=== PATIENT | female | born 1940 | race Caucasian/White ===

== ENCOUNTER 2020-01-29 12:54 | Emergency (ER) | payer MEDICARE, OTHER ==
[2020-01-29] MEDS ORDERED: Hydromorphone 1 mg/ml Ampule IV ONE (13:19)
[2020-01-29] MEDS ORDERED: Hydromorphone 1 mg/ml Ampule ONE (13:21)
[2020-01-29 13:47] LABS: INR 1.25 (0.8-3.0); PROTIME 14.1 SECONDS (9.95-12.35)
[2020-01-29 13:54] LABS: ALBUMIN 3.5 g/dL (3.5-5.0); ALKALINE PHOSPHATASE 80 U/L (38-126); ANION GAP 13.3 MEQ/L (5-15); BLOOD UREA NITROGEN 13 mg/dL (7-17); CHLORIDE 96 mmol/L (98-107); Calcium 8.3 mg/dL (8.4-10.2); Carbon Dioxide 27 mmol/L (22-30); Creatinine 1 0.43 mg/dL (0.52-1.04); EST GLOMERULAR FILTRATION RATE > 60.0 ML/MIN; Glucose 192 mg/dL (74-106); Potassium 3.7 mmol/L (3.5-5.1); SGOT/AST 35 U/L (14-36); SGPT/ALT 15 U/L (0-35); SODIUM 132 mmol/L (137-145); Total Protein 6.7 g/dL (6.3-8.2)
--- NOTE | 2020-01-29 13:55 | ERPHSYRPT ---
- History of Present Illness Time Seen by Provider: 01/29/20 13:00 Source: patient, EMS Exam Limitations: clinical condition (Patient seems to be slightly demented) Patient Subjective Stated Complaint: Pt states "I found out I was covid positive this morning and I was walking and fell over backwards. I did not lose consciousness, but my left hip really hurts." Triage Nursing Assessment: Pt presened alert and oriented X 3, skin pwd Pt able to speak in clear full sentences pt in no apparent respiratory distress. Pt left leg shortened and rotated outward with deformity to distal femoral region. Physician History: Paulie is a COVID +79-year-old female who was on the phone this morning became weak and fell no apparent loss of consciousness she was standing talking on the phone. She complains of pain in the left hip and thigh this occurred just prior to arrival and she arrived by ambulance with full PPE. Occurred: just prior to arrival Reason for Fall: fell from standing pos Injuries/Pain Location: lower extremity Loss of Consciousness: no loss of consciousness Quality: throbbing Severity of Pain-Max: severe Severity of Pain-Current: moderate Modifying Factors: Improves With: movement Associated Symptoms (Fall): lightheadedness Allergies/Adverse Reactions: Penicillins Allergy (Mild, Verified 01/29/20 13:28) Hives Home Medications: Ergocalciferol (Vitamin D2) [Vitamin D2] 1 cap PO BID 01/29/20 [History] Ergocalciferol (Vitamin D2) [Vitamin D2] 1 cap PO DAILY 01/29/20 [History] Metformin HCl 500 mg PO BID 01/29/20 [History] Omeprazole 20 mg PO DAILY 01/29/20 [History] Sitagliptin Phosphate [Januvia] 50 mg PO DAILY 01/29/20 [History] Hx Tetanus, Diphtheria Vaccination/Date Given: No Hx Influenza Vaccination/Date Given: Yes Hx Pneumococcal Vaccination/Date Given: No Immunizations Up to Date: Yes Travel Risk - International Travel Have you traveled outside of the country in past 3 weeks: No - Coronavirus Screening Are you exhibiting any of the following symptoms?: Yes Symptoms: Fever, Cough: New Onset, Shortness of Breath, Vomiting/Diarrhea, Loss of Taste or Smell, Headaches/Body Aches/Fatigue Close contact with a COVID-19 positive Pt in past 14-21 Days: Yes - Review of Systems Constitutional: No Fever, No Chills Eyes: No Symptoms Ears, Nose, & Throat: No Symptoms Respiratory: No Cough, No Dyspnea Cardiac: No Chest Pain, No Edema, No Syncope Abdominal/Gastrointestinal: No Abdominal Pain, No Nausea, No Vomiting, No Diarrhea Genitourinary Symptoms: No Dysuria Musculoskeletal: Deformity, Joint Pain, Joint Swelling, No Back Pain, No Neck Pain Skin: No Rash Neurological: No Dizziness, No Focal Weakness, No Sensory Changes Psychological: No Symptoms Endocrine: No Symptoms All Other Systems: Reviewed and Negative - Past Medical History Pertinent Past Medical History: Yes Neurological History: No Pertinent History ENT History: Macular Degeneration Cardiac History: No Pertinent History Respiratory History: No Pertinent History Endocrine Medical History: Diabetes Type II Musculoskeletal History: Arthritis GI Medical History: GERD History: No Pertinent History Psycho-Social History: No Pertinent History Female Reproductive Disorders: No Pertinent History - Past Surgical History Past Surgical History: Yes Other Surgical History: hip right. back. cysts from right breast - Social History Smoking Status: Never smoker Exposure to second hand smoke: No Drug Use: none Patient Lives Alone: No - Nursing Vital Signs Nursing Vital Signs: Initial Vital Signs Temperature 100.0 F 01/29/20 12:56 Pulse Rate 100 H 01/29/20 12:56 Respiratory Rate 22 01/29/20 12:56 Blood Pressure 168/81 01/29/20 12:56 O2 Sat by Pulse Oximetry 96 01/29/20 12:56 Pain Scale Pain Intensity 2 - Ramses Coma Score Best Eye Response ([place]): (4) open spontaneously Best Verbal Response ([place]): (5) oriented Best Motor Response ([place]): (6) obeys commands [place] Total: 15 - Physical Exam General Appearance: moderate distress, alert Head Injury: no evidence of injury Eye Exam: PERRL/EOMI ENT Exam: airway nml Neck Exam: normal inspection, No tenderness Respiratory/Chest Exam: normal breath sounds, No chest tenderness, No respiratory distress Cardiovascular Exam: normal heart sounds, regular rate/rhythm Gastrointestinal Exam: soft, No tenderness, No distention, No guarding, No ecchymosis Back Exam: normal inspection, No vertebral tenderness Extremity Exam: deformities (Left hip area and proximal femur), limited range of motion, evidence of injury, pain with movement Peripheral Pulses: dorsalis-pedis (R): 2+, dorsalis-pedis (L): 2+ Neurologic Exam: alert, oriented x 3, cooperative, sensation nml, No motor deficits Skin Exam: normal color, warm, dry SpO2 Interpretation: normal SpO2: 96 O2 Delivery: Room Air - Course Nursing assessment & vital signs reviewed: Yes EKG Interpreted by Me: RATE (90), Sinus Rhythm, NORMAL AXIS, NORMAL INTERVALS, Non-specific ST Changes - Radiology Exams Hip X-ray Interpretation: Reviewed by me, Other (X-ray shows a intertrochanteric fracture of the left hip with comminution to include the left lesser trochanter) Chest X-ray Interpretation: Reviewed by me (Chest x-ray reviewed by me shows left lower lobe pneumonia) Ordered Tests: Active Orders 24 hr Category Date Time Status EKG-ER Only STAT Care 01/29/20 13:09 Active CHEST 1 VIEW (PORTABLE) Stat Exams 01/29/20 13:07 Taken FEMUR Stat Exams 01/29/20 13:07 Completed HIP UNI (2V) INCL PEL IF DONE Stat Exams 01/29/20 13:07 Completed CBC W DIFF Stat Lab 01/29/20 13:20 Completed CMP Stat Lab 01/29/20 13:20 Completed PROTIME WITH INR Stat Lab 01/29/20 13:20 Completed TROPONIN Q3H Lab 01/29/20 13:20 Completed TROPONIN Q3H Lab 01/29/20 16:15 Ordered TROPONIN Q3H Lab 01/29/20 19:15 Ordered TROPONIN Q3H Lab 01/29/20 22:15 Ordered TROPONIN Q3H Lab 01/30/20 01:15 Ordered Medication Summary Discontinued Medications Generic Name Dose Route Start Last Admin Trade Name Freq PRN Reason Stop Dose Admin Hydromorphone HCl 1 mg 01/29/20 13:19 01/29/20 13:23 Hydromorphone 1 Mg/Ml Ampule IV 01/29/20 13:20 1 mg STAT ONE Administration Hydromorphone HCl Confirm 01/29/20 13:21 Hydromorphone 1 Mg/Ml Ampule Administered 01/29/20 13:22 Dose 1 mg .ROUTE [facility] ONE Lab/Rad Data: Laboratory Result Diagrams 01/29/20 13:20 01/29/20 13:20 Laboratory Results 01/29/20 01/29/20 01/29/20 Range/Units 13:20 13:20 13:20 WBC (4.0-10.5) K/mm3 RBC (4.1-5.4) M/mm3 Hgb (12.0-16.0) gm/dl Hct (35-47) % MCV (78-100) fl MCH (26-32) pg MCHC (32-36) g/dl RDW (11.5-14.0) % Plt Count (150-450) K/mm3 MPV (7.5-11.0) fl Gran % (36.0-66.0) % Eos # (Auto) (0-0.5) Absolute Lymphs (auto) (1.0-4.6) Absolute Monos (auto) (0.0-1.3) Lymphocytes % (24.0-44.0) % Monocytes % (0.0-12.0) % Eosinophils % (0.00-5.0) % Basophils % (0.0-0.4) % Absolute Granulocytes (1.4-6.9) Basophils # (0-0.4) PT 14.1 H (9.95-12.35) SECONDS INR 1.25 (0.8-3.0) Sodium 132 L (137-145) mmol/L Potassium 3.7 (3.5-5.1) mmol/L Chloride 96 L (98-107) mmol/L Carbon Dioxide 27 (22-30) mmol/L Anion Gap 13.3 (5-15) MEQ/L BUN 13 (7-17) mg/dL Creatinine 0.43 L (0.52-1.04) mg/dL Estimated GFR > 60.0 ML/MIN Glucose 192 H (74-106) mg/dL Calcium 8.3 L (8.4-10.2) mg/dL Total Bilirubin 0.60 (0.2-1.3) mg/dL AST 35 (14-36) U/L ALT 15 (0-35) U/L Alkaline Phosphatase 80 (38-126) U/L Troponin I 0.014 (0.000-0.034) ng/mL Serum Total Protein 6.7 (6.3-8.2) g/dL Albumin 3.5 (3.5-5.0) g/dL 01/29/20 Range/Units 13:20 WBC 6.1 (4.0-10.5) K/mm3 RBC 3.86 L (4.1-5.4) M/mm3 Hgb 11.9 L (12.0-16.0) gm/dl Hct 35.9 (35-47) % MCV 93.0 (78-100) fl MCH 30.8 (26-32) pg MCHC 33.1 (32-36) g/dl RDW 13.8 (11.5-14.0) % Plt Count 177 (150-450) K/mm3 MPV 11.6 H (7.5-11.0) fl Gran % 85.1 H (36.0-66.0) % Eos # (Auto) 0 (0-0.5) Absolute Lymphs (auto) 0.58 L (1.0-4.6) Absolute Monos (auto) 0.32 (0.0-1.3) Lymphocytes % 9.5 L (24.0-44.0) % Monocytes % 5.2 (0.0-12.0) % Eosinophils % 0.0 (0.00-5.0) % Basophils % 0.2 (0.0-0.4) % Absolute Granulocytes 5.20 (1.4-6.9) Basophils # 0.01 (0-0.4) PT (9.95-12.35) SECONDS INR (0.8-3.0) Sodium (137-145) mmol/L Potassium (3.5-5.1) mmol/L Chloride (98-107) mmol/L Carbon Dioxide (22-30) mmol/L Anion Gap (5-15) MEQ/L BUN (7-17) mg/dL Creatinine (0.52-1.04) mg/dL Estimated GFR ML/MIN Glucose (74-106) mg/dL Calcium (8.4-10.2) mg/dL Total Bilirubin (0.2-1.3) mg/dL AST (14-36) U/L ALT (0-35) U/L Alkaline Phosphatase (38-126) U/L Troponin I (0.000-0.034) ng/mL Serum Total Protein (6.3-8.2) g/dL Albumin (3.5-5.0) g/dL - Progress Progress: unchanged - Departure Departure Disposition: Transfer (Patient was accepted in transfer by Dr. Mercedes at [facility] transfer was necessitated because of no orthopedic coverage here at this facility. Were informed that she is COVID positive) Clinical Impression: Intertrochanteric fracture of left hip, Lab test positive for detection of COVID-19 virus Condition: Serious Critical Care Time: No Referrals: DOCTOR,NO FAMILY [Primary Care Provider] -
[2020-01-29 14:08] LABS: BASOPHIL % 0.2 % (0.0-0.4); Basophil (Absolute #) 0.01 (0-0.4); Eosinophil (Absolute #) 0 (0-0.5); Hematocrit 35.9 % (35-47); Hemoglobin 11.9 gm/dl (12.0-16.0); Lymphocyte (Absolute #) 0.58 (1.0-4.6); Lymphocytes % 9.5 % (24.0-44.0); Mean Corpuscular Hemoglobin 30.8 pg (26-32); Mean Corpuscular Hgb Concent. 33.1 g/dl (32-36); Mean Platelet Volume 11.6 fl (7.5-11.0); Monocyte (Absolute #) 0.32 (0.0-1.3); Monocytes % 5.2 % (0.0-12.0); Neutrophil % 85.1 % (36.0-66.0); Platelet Count 177 K/mm3 (150-450); Red Blood Count 3.86 M/mm3 (4.1-5.4); Red Cell Distribution Width 13.8 % (11.5-14.0); White Blood Count 6.1 K/mm3 (4.0-10.5)
--- NOTE | 2020-01-29 14:12 | XRAY ---
Indication: Pain following fall. Comparison: None 2 view left hip demonstrates minimally displaced intertrochanteric fracture with mildly displaced lesser trochanter fracture fragment. Elsewhere osteopenia, lower lumbar degenerative spondylosis, and urinary bladder catheter in situ.
--- NOTE | 2020-01-29 14:15 | XRAY ---
Indication: Pain following fall. Comparison: None 2 view left femur demonstrates minimally displaced intertrochanteric fracture. Elsewhere osteopenia, lower lumbar degenerative spondylosis, scattered vascular calcifications, and urinary bladder catheter in situ.
--- NOTE | 2020-01-29 14:17 | XRAY ---
Indication: Pain following fall. Comparison: None Portable chest hyperinflated with patchy right mid to upper lung airspace disease, left midlung subsegmental atelectasis/scarring, and left base calcified granuloma. Heart is not enlarged with small left infrahilar calcified nodes. Bony thorax intact with mild osteopenia and degenerative changes. Impression: Right mid to upper lung airspace disease. COPD and old granulomatous disease.
[2020-01-29 16:30] LABS: Slide Review 1 YES
[2020-01-29 16:31] VITALS: BP 180/78; PULSE 92; O2SAT 97
== END 2020-01-29 16:35 | disposition short-term general hospital (02) ==
LOC: ED 12:54 → MERGE 12:54 → ED 16:35
DX: S72.142A Displaced intertrochanteric fracture of left femur, initial encounter for closed fracture (principal); U07.1 COVID-19; E11.9 Type 2 diabetes mellitus without complications
CPT/HCPCS: 36415; 71045; 73502; 73552; 80053; 84484; 85025; 85610; 93005; 96374; 99285; J1170

== ENCOUNTER 2020-04-26 09:41 | Emergency (ER) | payer MEDICARE, OTHER ==
[2020-04-26 09:54] VITALS: O2SAT 99
--- NOTE | 2020-04-26 09:56 | ERPHSYRPT ---
- History of Present Illness Time Seen by Provider: 04/26/20 09:50 Patient Subjective Stated Complaint: pt here for fall, she states she fell in bathroom this morning. no co pain to right hand Triage Nursing Assessment: pt alert, resp easy, skin w/d/p. face mask in place, she has sweling and bruising to right hand Physician History: 80 years old female presented in the ER with chief complaint of right hand pain and swelling after she fell in the bathroom this morning. Patient reports she has issues with her legs which gave away and it happened while she was in the bathroom earlier and tried to catch her by stretching her hand. Did not hit her head, no loss of consciousness. She is complaining of mild dull aching pain which is more with palpation. No difficulty movements of fingers, no numbness tingling or weakness of fingers. Intact movements at wrist. No injury anywhere else. Occurred: this morning Method of Injury: fell Quality: constant, aching Severity of Pain-Max: mild Severity of Pain-Current: mild Extremities Pain Location: hand: right Modifying Factors: Improves With: immobilization, rest. Worsens With: movement Associated Symptoms: none Allergies/Adverse Reactions: Penicillins Allergy (Mild, Verified 04/26/20 09:54) Hives Home Medications: Ergocalciferol (Vitamin D2) [Vitamin D2] 1 cap PO BID 01/29/20 [History] Ergocalciferol (Vitamin D2) [Vitamin D2] 1 cap PO DAILY 01/29/20 [History] Metformin HCl 500 mg PO BID 01/29/20 [History] Omeprazole 20 mg PO DAILY 01/29/20 [History] Sitagliptin Phosphate [Januvia] 50 mg PO DAILY 01/29/20 [History] Hx Tetanus, Diphtheria Vaccination/Date Given: No Hx Influenza Vaccination/Date Given: Yes Hx Pneumococcal Vaccination/Date Given: Yes Immunizations Up to Date: Yes Travel Risk - International Travel Have you traveled outside of the country in past 3 weeks: No - Coronavirus Screening Are you exhibiting any of the following symptoms?: No Close contact with a COVID-19 positive Pt in past 14-21 Days: No - Review of Systems Constitutional: No Symptoms Eyes: Photophobia Ears, Nose, & Throat: No Symptoms Respiratory: No Symptoms Cardiac: No Symptoms Abdominal/Gastrointestinal: No Symptoms Genitourinary Symptoms: No Symptoms Musculoskeletal: Fall, Injury, Joint Pain, Myalgias Skin: No Symptoms Neurological: No Symptoms Psychological: No Symptoms Endocrine: No Symptoms Hematologic/Lymphatic: No Symptoms Immunological/Allergic: No Symptoms - Past Medical History Pertinent Past Medical History: Yes Neurological History: No Pertinent History ENT History: Macular Degeneration Cardiac History: No Pertinent History Respiratory History: No Pertinent History Endocrine Medical History: Diabetes Type II Musculoskeletal History: Arthritis GI Medical History: GERD History: No Pertinent History Psycho-Social History: No Pertinent History Female Reproductive Disorders: No Pertinent History - Past Surgical History Past Surgical History: Yes Other Surgical History: hip right. back. cysts from right breast - Social History Smoking Status: Never smoker Exposure to second hand smoke: No Drug Use: none Patient Lives Alone: No - Female History Hx Last Menstrual Period: psoy Hx Now: No - Nursing Vital Signs Nursing Vital Signs: Initial Vital Signs Temperature 97.6 F 04/26/20 09:53 Pulse Rate 103 H 04/26/20 09:53 Respiratory Rate 18 04/26/20 09:53 Blood Pressure 172/74 04/26/20 09:53 O2 Sat by Pulse Oximetry 99 04/26/20 09:53 Pain Scale Pain Intensity 6 - Physical Exam General Appearance: no apparent distress, alert Eyes, Ears, Nose, Throat Exam: normal ENT inspection, TMs normal, pharynx normal Neck Exam: normal inspection, non-tender, supple, full range of motion Cardiovascular/Respiratory Exam: chest non-tender, normal breath sounds Abdominal Exam: non-tender, soft Back Exam: normal inspection Shoulder Exam: normal inspection, non-tender Elbow/Forearm Exam: normal inspection, non-tender Wrist Exam: normal inspection, non-tender, no evidence of injury, normal ROM Hand Exam: normal ROM, bone tenderness (Fifth metacarpal right hand with swelling/hematoma/tenderness.), soft tissue tenderness, swelling Neuro/Tendon Exam: normal sensation, normal motor functions Mental Status Exam: alert, oriented x 3, cooperative Skin Exam: normal color SpO2 Interpretation: normal SpO2: 99 O2 Delivery: Room Air - Course Nursing assessment & vital signs reviewed: Yes Ordered Tests: Active Orders 24 hr Category Date Time Status Sling Application STAT Care 04/26/20 11:13 Active Splint STAT Care 04/26/20 11:04 Active HAND (MINIMUM 3 VIEWS) Stat Exams 04/26/20 10:21 Completed - Progress Progress: unchanged Progress Note: 04/26/20 10:58 Has fracture of shaft of fifth metacarpal. Ulnar splint is applied. Outpatient follow-up with Ortho clinic. Recommended Tylenol to use as needed, ice and elevation. Counseled pt/family regarding: diagnosis, need for follow-up, rad results - Departure Departure Disposition: Home Clinical Impression: Fracture, metacarpal shaft Qualifiers: Encounter type: initial encounter Metacarpal bone: fifth Fracture type: closed Fracture alignment: nondisplaced Laterality: right Qualified Code(s): S62.356A - Nondisplaced fracture of shaft of fifth metacarpal bone, right hand, initial encounter for closed fracture Condition: Stable Critical Care Time: No Referrals: CORRINE MCGOWAN DO [Primary Care Provider] - Follow Up with PCP/3 days MEENU ECHEVERRIA NP [NON-STAFF PHY W/O PRIVILEGES] - Follow Up with PCP/3 days Instructions: Hand Fracture (DC) Additional Instructions: Take Tylenol as needed for pain. Keep it elevated, apply ice intermittently. Follow-up with Ortho clinic for reevaluation. Return to ER for any worsening.
--- NOTE | 2020-04-26 10:46 | XRAY ---
Indication: Pain and swelling following fall. Comparison: None 3 view right hand demonstrates minimally displaced oblique fracture shaft 5th metacarpal with mild soft tissue swelling. Elsewhere osteopenia and minimal/mild degenerative changes all IP/1st MCP joints. No other bony, articular, or soft tissue abnormalities.
[2020-04-26 11:13] VITALS: BP 174/80; PULSE 88
== END 2020-04-26 11:14 | disposition home or self-care (01) ==
LOC: ED 09:41
DX: S62.356A Nondisplaced fracture of shaft of fifth metacarpal bone, right hand, initial encounter for closed fracture (principal); W01.0XXA Fall on same level from slipping, tripping and stumbling without subsequent striking against object, initial encounter
CPT/HCPCS: 29126; 73130; 99284

== ENCOUNTER 2021-06-23 14:53 | Observation (INO) | payer MEDICARE, OTHER ==
[2021-06-23] MEDS ORDERED: Ativan 2 MG/1 ML VIAL IV PRN (15:28)
[2021-06-23 16:11] LABS: Hematocrit 36.4 % (35-47); Hemoglobin 11.6 gm/dl (12.0-16.0); Mean Cell Volume 94.1 fl (78-100); Mean Corpuscular Hgb Concent. 31.9 g/dl (32-36); Mean Platelet Volume 12.2 fl (7.5-11.0); Platelet Count 234 K/mm3 (150-450); Red Blood Count 3.87 M/mm3 (4.1-5.4); Red Cell Distribution Width 13.3 % (11.5-14.0); White Blood Count 6.5 K/mm3 (4.0-10.5)
[2021-06-23 16:24] LABS: ALBUMIN 3.8 g/dL (3.5-5.0); ALKALINE PHOSPHATASE 103 U/L (38-126); ANION GAP 13.3 MEQ/L (5-15); BLOOD UREA NITROGEN 14 mg/dL (7-17); CHLORIDE 96 mmol/L (98-107); Calcium 9.2 mg/dL (8.4-10.2); Carbon Dioxide 29 mmol/L (22-30); Creatinine 1 0.37 mg/dL (0.52-1.04); EST GLOMERULAR FILTRATION RATE > 60.0 ML/MIN; Glucose 171 mg/dL (74-106); Potassium 3.8 mmol/L (3.5-5.1); SGOT/AST 23 U/L (14-36); SGPT/ALT 17 U/L (0-35); SODIUM 135 mmol/L (137-145); Total Protein 6.5 g/dL (6.3-8.2)
[2021-06-23 17:01] LABS: INFLUENZA A NEGATIVE (NEGATIVE); INFLUENZA B NEGATIVE (NEGATIVE); RESPIRATORY SYNCTIAL VIRUS NEGATIVE (Negative)
[2021-06-23 17:28] LABS: SARS-CoV-2 Xpert Express POSITIVE (NEGATIVE)
[2021-06-23 18:06] LABS: Appearance SLIGHTLY CLOUDY (CLEAR); Bacteria MODERATE /HPF (NEGATIVE); Bilirubin NEGATIVE (NEGATIVE); Blood NEGATIVE Ery/ul (0-5); Epithelial Cells RARE /HPF (FEW); Glucose 50 mg/dL (NEGATIVE); Ketones NEGATIVE (NEGATIVE); Leukocyte Esterase LARGE (NEGATIVE); Mucus SLIGHT /HPF (NEGATIVE); Nitrite POSITIVE (NEGATIVE); Protein,Urine Dip NEGATIVE (Negative); Specific Gravity 1.015 (1.005-1.025); Urobilinogen NEGATIVE mg/dL (0-1); WBC 51-100 /HPF (0-5)
[2021-06-23] MEDS: ROCEPHIN 1 Gm-D5w 50 ml Bag** 1 G/50 ML IVPB IV SCH (18:53)
[2021-06-23] MEDS: Lactated Ringers 1,000 ML IV SCH (18:53)
[2021-06-23] MEDS ORDERED: TYLENOL EXTRA STRENGTH 500 MG PO PRN (19:58)
[2021-06-23] MEDS: Ocuvite Tablet PO SCH (22:36)
[2021-06-23] MEDS: Zocor 10MG PO SCH (22:36)
[2021-06-23] MEDS: ANTIVERT 25 MG PO PRN (22:43)
[2021-06-24] MEDS ORDERED: Zofran 4 MG/2 ML VIAL IV PRN (06:26)
[2021-06-24] MEDS: Glucophage 500 MG PO SCH ×2 (08:23→17:33)
[2021-06-24] MEDS: Cozaar 50 MG PO SCH (08:26)
[2021-06-24] MEDS: Ocuvite Tablet PO SCH ×2 (08:26→21:43)
[2021-06-24] MEDS: ROCEPHIN 1 Gm-D5w 50 ml Bag** 1 G/50 ML IVPB IV SCH (08:27)
[2021-06-24] MEDS: Lactated Ringers 1,000 ML IV SCH ×2 (08:31→21:03)
--- NOTE | 2021-06-24 08:42 | XRAY ---
Indication: Abdomen pain. Positive Covid 19. Comparison: None 2 view abdomen nonacute and nonobstructed. Solid organs unremarkable. Moderate scattered aortic calcifications. Osseous structures demonstrate osteopenia, moderate/advanced multilevel thoracolumbar degenerative spondylosis, moderate levorotoscoliosis centered at L2, and partially visualized bilateral hip orthopedic hardware. Lung bases demonstrates minimal left base subsegmental atelectasis/scarring and a few bilateral tiny calcified granulomas. Impression: Nonacute abdomen with chronic features.
--- NOTE | 2021-06-24 08:58 | PCM.HP.ADD ---
Addendum to History & Physical - History & Physical Addendum Addendum to History & Physical: This certifies that the History & Physical in the electronic chart reflects the current health status of the patient. If there are changes in the H&P these changes/exceptions are listed as follows.
--- NOTE | 2021-06-24 09:07 | PCM.NOTE ---
Date and Time: 06/24/21857 Subjective Assessment: Pt found to have covid on admission yesterday. C/o sinus drainage with some cough x 1 week. no fever. Her dizziness is persistent this morning but maybe a little better. Nausea is improved and she tolerated a regular breakfast. Also found to have UTI on admission. BP up to 180s systolic this morning. Up to bedside commode ok, but up to bathroom with 1 assist. RN notes difficult to walk using her cane. - Review of Systems Constitutional: No Fever Respiratory: Cough Neurological: Dizziness Objective Exam General Appearance: no apparent distress, alert Neurologic Exam: cooperative, normal mood/affect Skin Exam: normal color, warm, dry, No rash Eye Exam: eyes nml inspection Ears, Nose, Throat Exam: moist mucous membranes Neck Exam: normal inspection Respiratory Exam: normal breath sounds, lungs clear, No crackles/rales, No rhonchi, No wheezing Cardiovascular Exam: regular rate/rhythm, normal heart sounds, No murmur Extremity Exam: normal inspection, No pedal edema, No swelling OBJECTIVE DATA Vital Signs: Vital Signs - 24 hr Temp Pulse Resp BP Pulse Ox 06/24/21 07:38 98.4 F 75 16 158/89 96 06/24/21 05:24 97.7 F 89 16 189/84 99 06/24/21 03:00 72 16 94 L 06/23/21 22:48 98.4 F 83 16 144/73 94 L 06/23/21 19:22 97.8 F 67 16 168/82 98 06/23/21 18:06 96.5 F 66 18 201/82 97 06/23/21 15:22 96.5 F 66 18 201/82 97 Pain Assessment - Last Documented Pain Intensity 0 Intake and Output: Intake & Output 06/21/21 06/22/21 06/23/21 06/24/21 11:59 11:59 11:59 11:59 Intake Total 1088 Output Total 1700 Balance -612 Weight 55.4 kg Lab Results: Lab Results-Last 24 Hours 06/23/21 06/23/21 06/23/21 Range/Units 15:45 16:00 16:00 WBC 6.5 (4.0-10.5) K/mm3 RBC 3.87 L (4.1-5.4) M/mm3 Hgb 11.6 L (12.0-16.0) gm/dl Hct 36.4 (35-47) % MCV 94.1 (78-100) fl MCH 30.0 (26-32) pg MCHC 31.9 L (32-36) g/dl RDW 13.3 (11.5-14.0) % Plt Count 234 (150-450) K/mm3 MPV 12.2 H (7.5-11.0) fl Sodium (137-145) mmol/L Potassium (3.5-5.1) mmol/L Chloride (98-107) mmol/L Carbon Dioxide (22-30) mmol/L Anion Gap (5-15) MEQ/L BUN (7-17) mg/dL Creatinine (0.52-1.04) mg/dL Estimated GFR ML/MIN Glucose (74-106) mg/dL POC Glucometer (74 to 106) mg/dL Calcium (8.4-10.2) mg/dL Total Bilirubin (0.2-1.3) mg/dL AST (14-36) U/L ALT (0-35) U/L Alkaline Phosphatase (38-126) U/L Serum Total Protein (6.3-8.2) g/dL Albumin (3.5-5.0) g/dL Urine Color YELLOW (YELLOW) Urine Appearance SLIGHTLY CLOUDY (CLEAR) Urine pH 6.0 (5-6) Ur Specific [place] 1.015 (1.005-1.025) Urine Protein NEGATIVE (Negative) Urine Ketones NEGATIVE (NEGATIVE) Urine Blood NEGATIVE (0-5) [place]/ul Urine Nitrite POSITIVE (NEGATIVE) Urine Bilirubin NEGATIVE (NEGATIVE) Urine Urobilinogen NEGATIVE (0-1) mg/dL Ur Leukocyte Esterase LARGE (NEGATIVE) Urine WBC (Auto) 51-100 (0-5) /HPF Urine RBC (Auto) 3-5 (0-2) /HPF U Epithel Cells (Auto) RARE (FEW) /HPF Urine Bacteria (Auto) MODERATE (NEGATIVE) /HPF Urine Mucus (Auto) SLIGHT (NEGATIVE) /HPF Urine Culture Reflexed YES (NO) Urine Glucose 50 (NEGATIVE) mg/dL Influenza Type A Ag NEGATIVE (NEGATIVE) Influenza Type B Ag NEGATIVE (NEGATIVE) RSV (PCR) NEGATIVE (Negative) SARS-CoV-2 (PCR) POSITIVE A (NEGATIVE) 0106/23/21 06/24/21 Range/Units 16:00 22:37 07:24 WBC (4.0-10.5) K/mm3 RBC (4.1-5.4) M/mm3 Hgb (12.0-16.0) gm/dl Hct (35-47) % MCV (78-100) fl MCH (26-32) pg MCHC (32-36) g/dl RDW (11.5-14.0) % Plt Count (150-450) K/mm3 MPV (7.5-11.0) fl Sodium 135 L (137-145) mmol/L Potassium 3.8 (3.5-5.1) mmol/L Chloride 96 L (98-107) mmol/L Carbon Dioxide 29 (22-30) mmol/L Anion Gap 13.3 (5-15) MEQ/L BUN 14 (7-17) mg/dL Creatinine 0.37 L (0.52-1.04) mg/dL Estimated GFR > 60.0 ML/MIN Glucose 171 H (74-106) mg/dL POC Glucometer 154 H 137 H (74 to 106) mg/dL Calcium 9.2 (8.4-10.2) mg/dL Total Bilirubin 0.50 (0.2-1.3) mg/dL AST 23 (14-36) U/L ALT 17 (0-35) U/L Alkaline Phosphatase 103 (38-126) U/L Serum Total Protein 6.5 (6.3-8.2) g/dL Albumin 3.8 (3.5-5.0) g/dL Urine Color (YELLOW) Urine Appearance (CLEAR) Urine pH (5-6) Ur Specific [place] (1.005-1.025) Urine Protein (Negative) Urine Ketones (NEGATIVE) Urine Blood (0-5) [place]/ul Urine Nitrite (NEGATIVE) Urine Bilirubin (NEGATIVE) Urine Urobilinogen (0-1) mg/dL Ur Leukocyte Esterase (NEGATIVE) Urine WBC (Auto) (0-5) /HPF Urine RBC (Auto) (0-2) /HPF U Epithel Cells (Auto) (FEW) /HPF Urine Bacteria (Auto) (NEGATIVE) /HPF Urine Mucus (Auto) (NEGATIVE) /HPF Urine Culture Reflexed (NO) Urine Glucose (NEGATIVE) mg/dL Influenza Type A Ag (NEGATIVE) Influenza Type B Ag (NEGATIVE) RSV (PCR) (Negative) SARS-CoV-2 (PCR) (NEGATIVE) Radiology Exams: Radiology Procedures Category Date Time Status ABDOMEN 2 VIEW Urgent Exams 06/23/21 Completed MRI BRAIN W & W/O CONTRAST [MRI] Urgent Exams 06/24/21 09:00 Ordered Assessment/Plan (1) COVID-19 Current Visit: Yes Status: Acute Assessment & Plan: Only mildly symptomatic - checking d-dimer and will consider anticoagulation. I did discuss with pharmacy and since she is only mildly sx with no hypoxemia, will not start any antivirals for now. Code(s): U07.1 - COVID-19 (2) UTI (urinary tract infection) Current Visit: Yes Status: Acute Qualifiers: Urinary tract infection type: acute cystitis Hematuria presence: without hematuria Qualified Code(s): N30.00 - Acute cystitis without hematuria Assessment & Plan: on rocephin day #2. Code(s): N39.0 - URINARY TRACT INFECTION, SITE NOT SPECIFIED (3) Dizziness Current Visit: Yes Status: Acute Assessment & Plan: likely BPPV; slightly improved. Code(s): R42 - DIZZINESS AND GIDDINESS (4) Nausea & vomiting Current Visit: Yes Status: Resolved Qualifiers: Vomiting type: unspecified Qualified Code(s): R11.2 - Nausea with vomiting, unspecified Code(s): R11.2 - NAUSEA WITH VOMITING, UNSPECIFIED
[2021-06-24] MEDS: ENOXAPARIN SODIUM SQ SCH (11:10)
[2021-06-24] MEDS: ECOTRIN 81 MG PO SCH (11:10)
--- NOTE | 2021-06-24 13:10 | HP ---
CHIEF COMPLAINT: Dizziness and vertigo. HISTORY OF PRESENT ILLNESS: An 81-year-old white female came in to see her physician complaining of almost one week of vertigo, spinning more left to right when she turns her head to the left. She said she had spells of this before but this one has been going on for days. She had been at [facility] and they did evaluation and could not find anything and went home. After three more days, her got a hold of her niece who is a physician here and she has been admitted. Consequentially, she had a COVID test which is positive. She had two vaccines for COVID but not the booster, she states. She said she is nauseated but only when she has some vertigo but otherwise she is not nauseated. She denies any shortness of breath or cough. She stated that if it was not for the vertigo she would be fine. MEDICATIONS: Atorvastatin 10 mg h.s., losartan 50 q.d., metformin 500 b.i.d., Ocuvite eye plus multi tablet 1 q.d. ALLERGIES: PENICILLIN. PAST MEDICAL HISTORY: Diabetes, hypertension, hyperlipidemia. PAST SURGICAL HISTORY: The patient has got numerous incisions from where she had a fractured hip bilateral in the past and tibia, I believe. REVIEW OF SYSTEMS: HEENT: Denies any change in vision or hearing. No ringing in her ears. CHEST: No cough. No shortness of breath. No chest pain. NEUROLOGIC: She has the vertigo usually with turning her head to the left or forward. She denies any strokes. ENDOCRINE: The patient has had diabetes for many years well controlled with Metformin. Hypertension, hyperlipidemia. ABDOMEN: No diarrhea. Nausea and vomiting related to the vertigo otherwise she is fine. PHYSICAL EXAMINATION: The patient is very alert and orientated 81-year-old white female who is in no distress. She is a little upset that she has to be in the hospital and that she has got COVID. She was afraid of catching COVID. I told her that is not a problem now. HEENT: Pupils equal and reactive to light. NECK: Supple without adenopathy. CHEST: Clear. CVS: Regular rate. No murmurs or gallops. ABDOMEN: Soft. No masses or organomegaly. IMPRESSION: The patient has acute labyrinthitis which has been going on for a week with MRI done which is pending results on that. I did try some maneuvering however that reproduced her symptoms especially on turning head to the left and raised head up. I do not know how particularly will resolve it. I am not going to cover for COVID at this time because I think the COVID is completely asymptomatic and the only side effects from other medications at this time. PROGNOSIS: Good.
--- NOTE | 2021-06-24 17:19 | XRAY ---
Indication: Cough. Positive Covid 19. Comparison: March 26, 2020. Portable chest slightly less inflated again with minimal left midlung subsegmental atelectasis/scarring and tiny bilateral calcified granulomas. No focal infiltrate, consolidation, or large effusion. Heart not enlarged. Bony thorax intact again with osteopenia, degenerative changes, and minimal scoliosis. Impression: Continued nonacute chest with chronic features.
[2021-06-24] MEDS: APRESOLINE 20 MG/ML INJ IV PRN (21:03)
[2021-06-24] MEDS: Zocor 10MG PO SCH (21:03)
[2021-06-25] MEDS: Glucophage 500 MG PO SCH ×2 (08:07→16:59)
[2021-06-25] MEDS: ENOXAPARIN SODIUM SQ SCH (09:05)
[2021-06-25] MEDS: Ocuvite Tablet PO SCH ×2 (09:06→21:40)
[2021-06-25] MEDS: ROCEPHIN 1 Gm-D5w 50 ml Bag** 1 G/50 ML IVPB IV SCH (09:06)
[2021-06-25] MEDS: ANTIVERT 25 MG PO PRN (09:06)
[2021-06-25] MEDS: Cozaar 50 MG PO SCH (09:06)
[2021-06-25] MEDS: ECOTRIN 81 MG PO SCH (09:06)
[2021-06-25 09:53] LABS: Absolute Neutrophil Ct (ANC) 4.46 (1.4-6.9); Basophil (Absolute #) 0.01 (0-0.4); Eosinophil % 0.8 % (0.00-5.0); Eosinophil (Absolute #) 0.05 (0-0.5); Hemoglobin 12.4 gm/dl (12.0-16.0); Lymphocyte (Absolute #) 1.42 (1.0-4.6); Mean Cell Volume 94.2 fl (78-100); Mean Corpuscular Hgb Concent. 31.8 g/dl (32-36); Mean Platelet Volume 12.1 fl (7.5-11.0); Monocyte (Absolute #) 0.51 (0.0-1.3); Monocytes % 7.9 % (0.0-12.0); Neutrophil % 69.1 % (36.0-66.0); Platelet Count 259 K/mm3 (150-450); Red Blood Count 4.14 M/mm3 (4.1-5.4); Red Cell Distribution Width 13.6 % (11.5-14.0); White Blood Count 6.5 K/mm3 (4.0-10.5)
[2021-06-25 10:11] LABS: BLOOD UREA NITROGEN 10 mg/dL (7-17); CHLORIDE 100 mmol/L (98-107); Calcium 8.8 mg/dL (8.4-10.2); Carbon Dioxide 29 mmol/L (22-30); Creatinine 1 0.43 mg/dL (0.52-1.04); EST GLOMERULAR FILTRATION RATE > 60.0 ML/MIN; Glucose 212 mg/dL (74-106); NT PRO BNP 485 pg/mL (0-1800); Potassium 3.4 mmol/L (3.5-5.1); SODIUM 137 mmol/L (137-145)
[2021-06-25] MEDS: Lactated Ringers 1,000 ML IV SCH (11:17)
--- NOTE | 2021-06-25 13:58 | PCM.NOTE ---
Date and Time: 06/25/21 9399 Subjective Assessment: doing ok - Review of Systems Constitutional: No Fever, No Chills Eyes: No Symptoms Ears, Nose, & Throat: No Symptoms Respiratory: No Cough, No Short Of Breath Cardiac: No Chest Pain, No Edema, No Syncope Abdominal/Gastrointestinal: No Abdominal Pain, No Nausea, No Vomiting, No Diarrhea Genitourinary Symptoms: No Dysuria Musculoskeletal: No Back Pain, No Neck Pain Skin: No Rash Neurological: No Dizziness, No Focal Weakness, No Sensory Changes Psychological: No Symptoms Endocrine: No Symptoms Hematologic/Lymphatic: No Symptoms Immunological/Allergic: No Symptoms Objective Exam General Appearance: no apparent distress, alert Neurologic Exam: alert, oriented x 3, cooperative, normal mood/affect, nml cerebellar function, sensation nml, No motor deficits Skin Exam: normal color, warm, dry Eye Exam: PERRL, EOMI, eyes nml inspection Ears, Nose, Throat Exam: normal ENT inspection, pharynx normal, moist mucous membranes Neck Exam: normal inspection, non-tender, supple, full range of motion Respiratory Exam: normal breath sounds, lungs clear, No respiratory distress Cardiovascular Exam: regular rate/rhythm, normal heart sounds Gastrointestinal/Abdomen Exam: soft, No tenderness, No mass Extremity Exam: normal inspection, normal range of motion Back Exam: normal inspection, normal range of motion, No CVA tenderness, No vertebral tenderness Pelvic Exam: deferred Rectal Exam: deferred OBJECTIVE DATA Vital Signs: Vital Signs - 24 hr Temp Pulse Resp BP Pulse Ox 06/25/21 12:00 97.7 F 80 18 162/81 99 06/25/21 06:58 98.0 F 69 18 157/77 96 06/25/21 03:56 97.7 F 89 14 155/104 06/25/21 00:18 144/79 06/24/21 21:48 90 166/69 06/24/21 21:00 86 18 190/88 06/24/21 17:00 98.1 F 85 16 141/82 96 Pain Assessment - Last Documented Pain Intensity 4 Intake and Output: Intake & Output 06/23/21 06/24/21 06/25/21 06/26/21 11:59 11:59 11:59 11:59 Intake Total 1568 3945 Output Total 6830 0630 Balance -332 1495 Weight 55.4 kg Lab Results: Lab Results-Last 24 Hours 06/24/21 06/24/21 06/25/21 Range/Units 16:48 20:53 07:49 WBC (4.0-10.5) K/mm3 RBC (4.1-5.4) M/mm3 Hgb (12.0-16.0) gm/dl Hct (35-47) % MCV (78-100) fl MCH (26-32) pg MCHC (32-36) g/dl RDW (11.5-14.0) % Plt Count (150-450) K/mm3 MPV (7.5-11.0) fl Gran % (36.0-66.0) % Eos # (Auto) (0-0.5) Absolute Lymphs (auto) (1.0-4.6) Absolute Monos (auto) (0.0-1.3) Lymphocytes % (24.0-44.0) % Monocytes % (0.0-12.0) % Eosinophils % (0.00-5.0) % Basophils % (0.0-0.4) % Absolute Granulocytes (1.4-6.9) Basophils # (0-0.4) Sodium (137-145) mmol/L Potassium (3.5-5.1) mmol/L Chloride (98-107) mmol/L Carbon Dioxide (22-30) mmol/L Anion Gap (5-15) MEQ/L BUN (7-17) mg/dL Creatinine (0.52-1.04) mg/dL Estimated GFR ML/MIN Glucose (74-106) mg/dL POC Glucometer 199 H 178 H 142 H (74 to 106) mg/dL Calcium (8.4-10.2) mg/dL NT-Pro-B Natriuret Pep (0-1800) pg/mL 06/25/21 06/25/21 06/25/21 Range/Units 09:32 09:32 11:56 WBC 6.5 (4.0-10.5) K/mm3 RBC 4.14 (4.1-5.4) M/mm3 Hgb 12.4 (12.0-16.0) gm/dl Hct 39.0 (35-47) % MCV 94.2 (78-100) fl MCH 30.0 (26-32) pg MCHC 31.8 L (32-36) g/dl RDW 13.6 (11.5-14.0) % Plt Count 259 (150-450) K/mm3 MPV 12.1 H (7.5-11.0) fl Gran % 69.1 H (36.0-66.0) % Eos # (Auto) 0.05 (0-0.5) Absolute Lymphs (auto) 1.42 (1.0-4.6) Absolute Monos (auto) 0.51 (0.0-1.3) Lymphocytes % 22.0 L (24.0-44.0) % Monocytes % 7.9 (0.0-12.0) % Eosinophils % 0.8 (0.00-5.0) % Basophils % 0.2 (0.0-0.4) % Absolute Granulocytes 4.46 (1.4-6.9) Basophils # 0.01 (0-0.4) Sodium 137 (137-145) mmol/L Potassium 3.4 L (3.5-5.1) mmol/L Chloride 100 (98-107) mmol/L Carbon Dioxide 29 (22-30) mmol/L Anion Gap 12.0 (5-15) MEQ/L BUN 10 (7-17) mg/dL Creatinine 0.43 L (0.52-1.04) mg/dL Estimated GFR > 60.0 ML/MIN Glucose 212 H (74-106) mg/dL POC Glucometer 211 H (74 to 106) mg/dL Calcium 8.8 (8.4-10.2) mg/dL NT-Pro-B Natriuret Pep 485 (0-1800) pg/mL Radiology Exams: Radiology Procedures Category Date Time Status CHEST 1 VIEW (PORTABLE) Routine Exams 06/24/21 16:40 Completed Assessment/Plan (1) COVID-19 Current Visit: Yes Status: Acute Code(s): U07.1 - COVID-19 (2) UTI (urinary tract infection) Current Visit: Yes Status: Acute Qualifiers: Urinary tract infection type: acute cystitis Hematuria presence: without hematuria Qualified Code(s): N30.00 - Acute cystitis without hematuria Assessment & Plan: Chief Complaint Diagnosis DIZZINESS, SINUSITIS, NAUSEA, VOMITING Allergies Allergy/AdvReac Type Severity Reaction Status Date / Time Penicillins Allergy Mild Hives Verified 04/26/20 09:54 Vital Signs (Last 24 hours) Temp Pulse Resp BP Pulse Ox 06/25/21 12:00 97.7 F 80 18 162/81 99 06/25/21 06:58 98.0 F 69 18 157/77 96 06/25/21 03:56 97.7 F 89 14 155/104 06/25/21 00:18 144/79 06/24/21 21:48 90 166/69 06/24/21 21:00 86 18 190/88 06/24/21 17:00 98.1 F 85 16 141/82 96 Home Medications Medication Instructions Recorded Confirmed Last Taken Type Atorvastatin Calcium 10 mg PO HS 06/23/21 06/23/21 06/22/21 History Losartan Potassium 50 mg PO DAILY 06/23/21 06/23/21 06/23/21 History Mv-Min/FA/Vit K/Lycop/Lut/Zeax 1 each PO BID 06/23/21 06/23/21 06/23/21 History [Ocuvite Eye + Multi Tablet] Current Medications Generic Name Dose Route Start Last Admin Trade Name Freq PRN Reason Stop Dose Admin Acetaminophen 500 mg 06/23/21 19:58 Acetaminophen 500 Mg Tablet PO 07/23/21 19:57 Q4H PRN PRN PAIN AND/OR FEVER Aspirin 81 mg 06/24/21 10:00 06/25/21 09:06 Aspirin 81 Mg Tablet.Ec PO 07/24/21 09:59 81 mg DAILY JEISON Administration Enoxaparin Sodium 40 mg 06/24/21 12:00 06/25/21 09:05 Enoxaparin Sodium 40 Mg/0.4 Ml Syringe SQ 07/24/21 11:59 40 mg DAILY JEISON Administration Hydralazine HCl 10 mg 06/24/21 08:53 06/24/21 21:03 Hydralazine Hcl 20 Mg/Ml Vial IV 07/24/21 08:52 10 mg [id number] PRN Administration HYPERTENSION Lactated Ringer's 1,000 mls @ 70 mls/hr 06/23/21 15:30 06/25/21 11:17 Lactated Ringers IV 07/23/21 15:29 70 mls/hr .[id number] JEISON Administration Ceftriaxone Sodium/Dextrose 1 g in 50 mls @ 100 mls/hr 06/23/21 17:00 06/25/21 09:06 Rocephin 1 Gm-D5w 50 Ml Bag IV 06/26/21 16:59 100 mls/hr DAILY JEISON Administration Lorazepam 0.5 mg 06/23/21 15:28 Lorazepam 2 Mg/1 Ml 2 Mg Vial IV 07/23/21 15:27 Q4H PRN PRN DIZZINESS Losartan Potassium 50 mg 06/24/21 10:00 06/25/21 09:06 Losartan Potassium 50 Mg Tablet PO 07/24/21 09:59 50 mg DAILY JEISON Administration Meclizine HCl 12.5 mg 06/23/21 15:27 06/25/21 09:06 Meclizine Hcl 25 Mg Tablet PO 07/23/21 15:26 12.5 mg Q8H PRN PRN Administration DIZZINESS Metformin HCl 500 mg 06/24/21 08:00 06/25/21 08:07 Metformin Hcl 500 Mg Tablet PO 07/24/21 07:59 500 mg BIDWM JEISON Administration Multivitamins/Minerals 1 tab 06/23/21 22:00 06/25/21 09:06 Beta-Carotene(A) W-C And E/Min 1 Tab Tablet PO 07/23/21 21:59 1 tab BID JEISON Administration Ondansetron HCl 4 mg 06/24/21 06:26 Ondansetron Hcl 4 Mg/2 Ml Vial IV 07/24/21 06:25 Q4H PRN PRN NAUSEA/VOMITING Simvastatin 10 mg 06/23/21 22:00 06/24/21 21:03 Simvastatin 10 Mg Tablet PO 07/23/21 21:59 10 mg HS JEISON Administration Intake & Output (Last 24 hours) 06/23/21 06/24/21 06/25/21 06/26/21 11:59 11:59 11:59 11:59 Intake Total 1568 3945 Output Total 1900 2450 Balance -332 1495 Weight 55.4 kg Microbiology Results (Last 24 hours) 06/23/21 16:00 Clean Catch Midstream Urine Culture - Preliminary GRAM NEGATIVE ID AND SENSITIVITY PENDING Laboratory Results (Last 24 hours) 06/25/21 06/25/21 06/25/21 11:56 09:32 09:32 WBC 6.5 RBC 4.14 Hgb 12.4 Hct 39.0 MCV 94.2 MCH 30.0 MCHC 31.8 L RDW 13.6 Plt Count 259 MPV 12.1 H Gran % 69.1 H Eos # (Auto) 0.05 Absolute Lymphs (auto) 1.42 Absolute Monos (auto) 0.51 Lymphocytes % 22.0 L Monocytes % 7.9 Eosinophils % 0.8 Basophils % 0.2 Absolute Granulocytes 4.46 Basophils # 0.01 Sodium 137 Potassium 3.4 L Chloride 100 Carbon Dioxide 29 Anion Gap 12.0 BUN 10 Creatinine 0.43 L Estimated GFR > 60.0 Glucose 212 H POC Glucometer 211 H Calcium 8.8 NT-Pro-B Natriuret Pep 485 06/25/21 06/24/21 06/24/21 07:49 20:53 16:48 WBC RBC Hgb Hct MCV MCH MCHC RDW Plt Count MPV Gran % Eos # (Auto) Absolute Lymphs (auto) Absolute Monos (auto) Lymphocytes % Monocytes % Eosinophils % Basophils % Absolute Granulocytes Basophils # Sodium Potassium Chloride Carbon Dioxide Anion Gap BUN Creatinine Estimated GFR Glucose POC Glucometer 142 H 178 H 199 H Calcium NT-Pro-B Natriuret Pep Orders (Last 24 hours) Category Date Time Status CHEST 1 VIEW (PORTABLE) Routine Exams 06/24/21 16:40 Completed BMP Urgent Lab 06/25/21 09:32 Completed CBC W DIFF Urgent Lab 06/25/21 09:32 Completed NT PRO BNP Urgent Lab 06/25/21 09:32 Completed POCT GLUCOSE Stat Lab 06/24/21 16:48 Completed POCT GLUCOSE Stat Lab 06/24/21 20:53 Completed POCT GLUCOSE Stat Lab 06/25/21 07:49 Completed POCT GLUCOSE Stat Lab 06/25/21 11:56 Completed Patient Care Notes (Last 24 hours) 06/25/21 04:13 Nursing Note by Nettie Anderson Pt's 0400 BP elevated. Pt had just been up to the bedside commode. Will reassess after pt settled back in bed Initialized on 06/25/21 04:13 - END OF NOTE 06/24/21 22:37 Nursing Note by Allison Garcia @2100 PTS BP WAS 190/88 IN HER LEFT ARM, 188/82 IN HER LEFT ARM MANUALLY. GAVE A PRN DOSE OF HYDRALAZINE AND RECHECKED HER BP AND IT CAME DOWN TO 166/69. WILL CONTINUE TO MONITOR. Initialized on 06/24/21 22:37 - END OF NOTE Code(s): N39.0 - URINARY TRACT INFECTION, SITE NOT SPECIFIED (3) Lab test positive for detection of COVID-19 virus Current Visit: No Status: Acute Code(s): U07.1 - COVID-19
[2021-06-25] MEDS: Zocor 10MG PO SCH (21:40)
[2021-06-25] MEDS: APRESOLINE 20 MG/ML INJ IV PRN (22:07)
[2021-06-26] MEDS: Lactated Ringers 1,000 ML IV SCH (01:17)
[2021-06-26] MEDS: ANTIVERT 25 MG PO PRN (06:24)
[2021-06-26] MEDS: Glucophage 500 MG PO SCH (08:02)
[2021-06-26] MEDS: Ocuvite Tablet PO SCH (09:18)
[2021-06-26] MEDS: ENOXAPARIN SODIUM SQ SCH (09:18)
[2021-06-26] MEDS: ROCEPHIN 1 Gm-D5w 50 ml Bag** 1 G/50 ML IVPB IV SCH (09:18)
[2021-06-26] MEDS: Cozaar 50 MG PO SCH (09:18)
[2021-06-26] MEDS: ECOTRIN 81 MG PO SCH (09:18)
[2021-06-26 12:17] VITALS: BP 148/62; PULSE 102; O2SAT 98
--- NOTE | 2021-06-26 14:46 | PCM.DS ---
Discharge Summary Date of Admission: 06/23/21 15:06 Admitting Physician: JOEY DISLA Primary Care Provider: CORRINE MCGOWAN DO Allergies Allergies Penicillins Allergy (Mild, Verified 04/26/20 09:54) [facility] Summary - Hospital Course Hospital Course: Pt is an 81 yo female with OA and hip fx/replacements, DM, htn, and hypertension who was admitted from office with dizziness, sinusitis, N/V. She was found to be covid positive and admitted to the covid unit. Ct of the head had been negative a few days prior in [facility] ER. She was started on IV fluids and Rocephin. Found to have UTI which grew Klebsiella, sensitive to Rocephin. Her dizziness is thought to be BPPV, and has improved during her stay. She will need a walker to go home on. She has been tolerating po well, regular house diet. Her d-dimer was elevated and she was on lovenox while on the Covid unit. She is asymptomatic. Her oxygenation is fine on room air. She was not given steroids or covid infusions. She will be discharged to home on keflex for 4d, to finish a total 7d regimen of antibiotics. - Vitals & Intake/Output Vital Signs: Vital Signs Temperature 97.8 F 06/26/21 12:00 Pulse Rate 102 H 06/26/21 12:00 Respiratory Rate 19 06/26/21 12:00 Blood Pressure 148/62 06/26/21 12:00 O2 Sat by Pulse Oximetry 98 06/26/21 12:00 Intake & Output: Intake & Output 06/24/21 06/25/21 06/26/21 06/27/21 11:59 11:59 11:59 11:59 Intake Total 1568 3945 3689 420 Output Total 1900 2450 1850 400 Balance -332 1495 1839 20 Weight 55.4 kg - Lab Result Diagrams: 06/25/21 09:32 06/25/21 09:32 Lab Results-Last 24 Hrs: Lab Results-Last 24 Hours 06/25/21 06/25/21 06/26/21 Range/Units 16:32 22:36 08:09 POC Glucometer 210 H 163 H 147 H (74 to 106) mg/dL 06/26/21 Range/Units 11:45 POC Glucometer 230 H (74 to 106) mg/dL Micro Results-Entire Visit: Microbiology 06/23/21 16:00 Urine Culture - Final Clean Catch Midstream Klebsiella Pneumoniae Accuchecks Date 06/25/21 Time 16:40 - Radiology Exams Ordered Rad Exams-Entire Visit: Radiology Procedures Category Date Time Status CHEST 1 VIEW (PORTABLE) Routine Exams 06/24/21 16:40 Completed - Procedures and Test Procedures and Tests throughout Hospitalization: Therapy Orders & Screens 06/23/21 15:40 PT Eval & Treat ( Order) ONCE Reason for Eval:: POSSIBLE BPPV Diagnosis: DIZZINESS, SINUSITIS, NAUSEA, VOMITING Discharge Exam General Appearance: no apparent distress, alert Neurologic Exam: oriented x 3, cooperative Eye Exam: eyes nml inspection Ears, Nose, Throat Exam: moist mucous membranes Neck Exam: normal inspection Respiratory Exam: normal breath sounds, lungs clear, No prolonged expirations, No crackles/rales, No rhonchi, No wheezing Cardiovascular Exam: regular rate/rhythm, normal heart sounds, No murmur Gastrointestinal/Abdomen Exam: soft, normal bowel sounds, No tenderness, No distention, No mass, No guarding, No rebound Back Exam: normal inspection, No rash Extremity Exam: normal inspection, No pedal edema, No swelling Skin Exam: normal color, warm, dry, No rash Final Diagnosis/Problem List - Final Discharge Diagnosis/Problem (1) COVID-19 Current Visit: Yes Status: Acute Assessment & Plan: asymptomatic, expect uneventful course. Per guidelines, not coagulating pt at home since she is at high risk for falls. Discussed with pt and her . Code(s): U07.1 - COVID-19 (2) UTI (urinary tract infection) Current Visit: Yes Status: Acute Assessment & Plan: doing well, finish 7d of antibiotics Code(s): N39.0 - URINARY TRACT INFECTION, SITE NOT SPECIFIED (3) Dizziness Current Visit: Yes Status: Acute Code(s): R42 - DIZZINESS AND GIDDINESS (4) Nausea & vomiting Current Visit: Yes Status: Resolved Code(s): R11.2 - NAUSEA WITH VOMITING, UNSPECIFIED - Discharge Disposition: Home, Self-Care Condition: Stable Prescriptions: New Meclizine HCl 25 mg [Antivert 25 mg] 12.5 mg PO Q8H PRN PRN #30 tablet PRN Reason: Dizziness Cephalexin Mh 500 mg [Keflex 500 mg] 500 mg PO Q6H #24 cap Continue Metformin HCl 500 mg PO BID Mv-Min/FA/Vit K/Lycop/Lut/Zeax [Ocuvite Eye Plus Multi Tablet] 1 each PO BID Losartan Potassium 50 mg PO DAILY Atorvastatin Calcium 10 mg PO HS Instructions: Urinary Tract Infection, Adult (DC), Dizziness, Nonvertigo, (DC), Coronavirus Disease 2019 (COVID-19) (DC) Follow up with: JOEY DISLA [ACTIVE STAFF] - 07/07/21 2:00 pm Forms: Discharge Instructions
== END 2021-06-26 15:35 | disposition home or self-care (01) ==
LOC: MED SURG 15:06
PROVIDERS: ADMIT Family Medicine; ATTEND Family Medicine
DX: U07.1 COVID-19 (principal); N39.0 Urinary tract infection, site not specified; R42 Dizziness and giddiness; R11.2 Nausea with vomiting, unspecified; E11.9 Type 2 diabetes mellitus without complications; I10 Essential (primary) hypertension; E78.5 Hyperlipidemia, unspecified; H83.09 Labyrinthitis, unspecified ear; Z79.899 Other long term (current) drug therapy; Z20.828 Contact with and (suspected) exposure to other viral communicable diseases
CPT/HCPCS: 0241U; 36415; 71045; 74021; 80048; 80053; 81001; 82947; 83880; 85025; 85027; 85379; 87077; 87086; 87186; 97161; 97530; J0360; J0696; J1650; A9270-GY